=== PATIENT | female | born 1945 | race African-American/Black ===

== ENCOUNTER 2016-09-20 14:00 | Outpatient (RCR) | payer OTHER | END 2016-10-17 | disposition home or self-care (01) | LOC: PTY 14:00 | DX: M54.16 Radiculopathy, lumbar region (principal) | CPT/HCPCS: 97110; 97140; 97162; G0283 ==

== ENCOUNTER 2016-10-19 13:40 | Outpatient (RCR) | payer OTHER | END 2016-11-17 | disposition home or self-care (01) | LOC: PTY 13:40 | DX: M54.16 Radiculopathy, lumbar region (principal) | CPT/HCPCS: 97110; 97140; G0283 ==